=== PATIENT | female | born 1940 | race Caucasian/White ===

== ENCOUNTER 2021-04-14 18:16 | Emergency (ER) | payer MEDICARE, OTHER ==
[~2021-04-14] VITALS: Ht 175.3 cm; Wt 94.5 kg
[2021-04-14] MEDS ORDERED: TOPROL-XL200 MG PO (18:31)
[2021-04-14] MEDS ORDERED: PROPRANOLOL HCL80 M4 PO (18:31)
[2021-04-14] MEDS ORDERED: AMLODIPINE BESYL5 MG PO (18:31)
[2021-04-14] MEDS ORDERED: SYNTHROID112 MCG PO (18:31)
[2021-04-14] MEDS ORDERED: HYDROCHLOROTHIA1 T15 PO (18:32)
[2021-04-14] MEDS ORDERED: GLIMEPIRIDE4 MG PO (18:32)
[2021-04-14 18:53] LABS: BASO # 0.03 K/mm3; EOS % 2.4 %; HEMATOCRIT 36.2 %; HEMOGLOBIN 12.1 g/dL; LYMPH# 1.33 K/mm3; MEAN CELL VOLUME 93 fl; MEAN CORPUSCULAR HEMOGLOBIN 31 pg; MEAN CORPUSCULAR HGB CONC 33 g/dL; MEAN PLATELET VOLUME 10.1 fl; PLATELET COUNT 261 K/mm3; RED BLOOD COUNT 3.88 M/mm3; RED CELL DISTRIBUTION WIDTH 13.5 %; WHITE BLOOD COUNT 8.4 K/mm3
[2021-04-14 19:07] LABS: ALBUMIN 4.3 g/dL
[2021-04-14 19:08] LABS: CALCIUM 9.8 mg/dL
[2021-04-14 19:09] LABS: TOTAL PROTEIN 7.1 g/dL
[2021-04-14 19:11] LABS: TOTAL BILIRUBIN 0.7 mg/dL
[2021-04-14 19:39] LABS: URINE APPEARANCE CLEAR; URINE COLOR YELLOW
[2021-04-14 19:40] LABS: URINE BILIRUBIN NEGATIVE; URINE BLOOD TRACE; URINE GLUCOSE NEGATIVE; URINE KETONE 1+; URINE LEUKOCYTE ESTERASE NEGATIVE; URINE MUCUS PRESENT; URINE NITRATE NEGATIVE; URINE PROTEIN(semi-quant) TRACE; URINE UROBILINOGEN NORMAL; URINE WBC 0-1 /hpf
[2021-04-14] MEDS ORDERED: TRAMADOL 50 MG TAB PO (21:39)
[2021-04-14 22:20] VITALS: BP 161/78
== END 2021-04-14 22:20 | disposition home or self-care (01) ==
LOC: ED 18:16 → EDSEX 20:28 → ED 20:28
PROVIDERS: Nurse Practitioner Family
DX: K80.11 Calculus of gallbladder with chronic cholecystitis with obstruction (principal)

== ENCOUNTER → 2023-01-24 | Outpatient (CLI) | payer MEDICARE, OTHER ==
[~2023-01-24] MED LIST: AMLODIPINE BESYL5 MG PO; GLIMEPIRIDE4 MG PO; HYDROCHLOROTHIA1 T15 PO; PROPRANOLOL HCL80 M4 PO; SYNTHROID112 MCG PO; TOPROL-XL200 MG PO; TRAMADOL 50 MG TAB PO
[2023-01-24 09:16] LABS: HEMATOCRIT 37.2 % (37.0-47.0); MEAN PLATELET VOLUME 12.1 fl (7.4-10.4); RED BLOOD COUNT 3.94 M/mm3 (4.10-5.30); RED CELL DISTRIBUTION WIDTH 12.5 % (11.5-14.5); WHITE BLOOD COUNT 6.3 K/mm3 (4.8-10.8)
[2023-01-24 09:37] LABS: ALBUMIN 3.9 g/dL (3.4-4.8)
[2023-01-24 09:38] LABS: CALCIUM 10.1 mg/dL (8.3-10.5)
[2023-01-24 09:39] LABS: TOTAL PROTEIN 7.1 g/dL (6.2-8.1)
[2023-01-24 09:41] LABS: TOTAL BILIRUBIN 0.3 mg/dL (0.2-1.2)
== END ==
LOC: LAB 08:56
PROVIDERS: Family Medicine
DX: I10 Essential (primary) hypertension (principal); E78.5 Hyperlipidemia, unspecified; E11.9 Type 2 diabetes mellitus without complications; M62.81 Muscle weakness (generalized); R26.9 Unspecified abnormalities of gait and mobility; E03.9 Hypothyroidism, unspecified; Z85.850 Personal history of malignant neoplasm of thyroid; Z85.3 Personal history of malignant neoplasm of breast

== ENCOUNTER → 2023-03-06 | Outpatient (CLI) | payer MEDICARE, OTHER ==
[2023-03-06 22:24] LABS: CREATININE OTHER SOURCE 32 mg/dL (63-166)
== END ==
LOC: LAB 11:34
PROVIDERS: Family Medicine
DX: Z00.00 Encounter for general adult medical examination without abnormal findings (principal); E11.9 Type 2 diabetes mellitus without complications

== ENCOUNTER → 2023-07-16 | Outpatient (REF) | payer MEDICARE, OTHER ==
[~2023-07-16] MED LIST changes: +ALLEGRA ALLERG180 MG PO; +BIOTIN5000 MCG PO; +FISH OIL 1,0001 EAC3 PO; +K-LOR20 MEQ/PKT PO; +KETOROLAC10 MG PO; +LASIX20 M1 PO; +MULTI-VITAMIN1 EACH PO; +TYLENOL 8 HOUR650 M1 PO; +VITAMIN D325 MC7 PO; +ZESTRIL20 M1 PO; +ZOLOFT25 M1 PO
[2023-07-16 11:43] LABS: PH-URINE 5.5 (5.0 - 8.0); URINE APPEARANCE CLEAR (CLEAR); URINE BILIRUBIN NEGATIVE (NEGATIVE); URINE BLOOD TRACE-INTACT (NEGATIVE); URINE COLOR YELLOW (YELLOW); URINE GLUCOSE NEGATIVE (NEGATIVE); URINE KETONE NEGATIVE (NEGATIVE); URINE LEUKOCYTE ESTERASE NEGATIVE (NEGATIVE); URINE NITRATE NEGATIVE (NEGATIVE); URINE PROTEIN(semi-quant) NEGATIVE (NEGATIVE)
== END ==
LOC: LAB 11:31
PROVIDERS: Family Medicine
DX: N39.0 Urinary tract infection, site not specified (principal)

== ENCOUNTER → 2023-07-26 | Outpatient (CLI) | payer MEDICARE, OTHER | LOC: RAD 10:12 | DX: R06.2 Wheezing (principal) ==

== ENCOUNTER → 2023-08-26 | Outpatient (REF) | payer MEDICARE, OTHER ==
[2023-10-14 05:31] LABS: ALBUMIN 3.3 g/dL (3.4-4.8); CALCIUM 9.2 mg/dL (8.3-10.5); TOTAL BILIRUBIN 0.2 mg/dL (0.2-1.2); TOTAL PROTEIN 6.3 g/dL (6.2-8.1)
== END ==
LOC: LAB 12:50
PROVIDERS: Nurse Practitioner
DX: I50.9 Heart failure, unspecified (principal); R22.43 Localized swelling, mass and lump, lower limb, bilateral; J04.0 Acute laryngitis

== ENCOUNTER → 2023-08-31 | Outpatient (REF) | payer MEDICARE, OTHER ==
[2023-10-22 12:06] LABS: HEMATOCRIT 29.9 % (37.0-47.0); HEMOGLOBIN 9.6 g/dL (12.5-16.0); RED BLOOD COUNT 3.26 M/mm3 (4.10-5.30); RED CELL DISTRIBUTION WIDTH 14.1 % (11.5-14.5); WHITE BLOOD COUNT 8.7 K/mm3 (4.8-10.8)
== END ==
LOC: LAB 07:00
PROVIDERS: Nurse Practitioner
DX: R05.9 Cough, unspecified (principal); R60.9 Edema, unspecified

== ENCOUNTER → 2023-12-18 | Outpatient (CLI) | payer MEDICARE, OTHER ==
[2023-12-18 15:57] LABS: ALBUMIN 4.1 g/dL (3.4-4.8)
[2023-12-18 15:58] LABS: CALCIUM 9.3 mg/dL (8.3-10.5)
[2023-12-18 15:59] LABS: TOTAL PROTEIN 7.3 g/dL (6.2-8.1)
[2023-12-18 16:01] LABS: TOTAL BILIRUBIN 0.5 mg/dL (0.2-1.2)
== END ==
LOC: LAB 15:41
PROVIDERS: Nurse Practitioner
DX: I10 Essential (primary) hypertension (principal); E03.9 Hypothyroidism, unspecified; E11.9 Type 2 diabetes mellitus without complications